=== PATIENT | male | born 1975 | race American Indian/Alaskan Native ===

== ENCOUNTER 2016-07-30 06:39 | Inpatient (IN) | payer MEDICAID ==
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
[2016-07-30 09:02] LABS: Basophils % (Auto) 1.1 % (0.0-1.8); Eosinophils % (Auto) 2.4 % (0.0-4.3); Hematocrit 43.4 % (35.5-45.6); Mean Corpuscular HGB Conc 32 % (32-34); Mean Corpuscular Hemoglobin 27 pg (28-32); Mean Corpuscular Volume 83 fl (84-94); Platelet Count 199 K/mm3 (140-440); Red Blood Count 5.22 M/mm3 (3.65-5.03); Red Cell Distribution Width 14.6 % (13.2-15.2); White Blood Count 4.7 K/mm3 (4.5-11.0)
[2016-07-30 09:14] LABS: INR 1.06 (0.87-1.13)
[2016-07-30 09:21] LABS: Anion Gap 17 mmol/L; BUN/Creatinine Ratio 11.11; Blood Urea Nitrogen 10 mg/dL (9-20); Calcium 8.9 mg/dL (8.4-10.2); Carbon Dioxide 25 mmol/L (22-30); Chloride 101.9 mmol/L (98-107); Glucose 68 mg/dL (75-100); Potassium 3.8 mmol/L (3.6-5.0); Sodium 140 mmol/L (137-145)
[2016-07-30 09:25] LABS: Alanine Aminotransferase 20 units/L (7-56); Albumin/Globulin Ratio 1.3 %; Alkaline Phosphatase 86 units/L (35-129); Bilirubin,Total 0.2 mg/dL (0.1-1.2); Total Protein 7.1 g/dL (6.3-8.2)
[2016-07-30 09:29] LABS: Bilirubin,Direct < 0.2 mg/dL (0-0.2)
--- NOTE | 2016-07-30 09:29 | XRay Report ---
Left tibia-fibula 2 views: History: Large mass anterior to mid tibia. Findings: There is soft tissue swelling noted at the anterior aspect of the proximal third of tibia. A metallic plate and screws at old healed fracture distal tibia appear stable. No lytic lesion. No periosteal reaction. Cortical thickening proximal tibia lateral aspect probably from old injury. Impression: Findings described. No acute changes.
[2016-07-30 10:06] LABS: Erythrocyte Sedimentation Rate 3 mm/Hr (0-20)
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
[2016-07-30] MEDS ORDERED: VANCOMYCIN VIAL IV ONE (11:14)
[2016-07-30] MEDS ORDERED: VANCOMYCIN PHARMACY TO DOSE IV SCH (12:00)
[2016-07-30] MEDS ORDERED: DULCOLAX PR PRN (12:34)
[2016-07-30] MEDS ORDERED: TYLENOL PO PRN (12:34)
[2016-07-30] MEDS ORDERED: ZOFRAN IV PRN (12:34)
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
[2016-07-30] MEDS ORDERED: MOTRIN PO PRN (12:39)
[2016-07-30] MEDS ORDERED: LOVENOX SUB-Q SCH (13:00)
--- NOTE | 2016-07-30 13:13 | Admit Criteria Form ---
Admission Criteria Documentation: MUSCULOSKELETAL DISEASE GRG Clinical Indications for Admission to Inpatient Care (Place 'X' for any and all applicable criteria): Hospital admission is needed for appropriate care of the patient because of ANY ONE of the following: [ ]I. Fracture, dislocation, or other musculoskeletal injury requiring inpatient care(medical) as indicated by ANY ONE of the following(4)(5)(6)(7) [ ]a) Vertebral fracture requiring observation for instability or neurologic compromise (8) [ ]b) Compartment syndrome (proven or cannot be ruled out during observation level of care) (9) [ ]c) Limb-threatening injury [ ]d) Major injury requiring inpatient stabilization such as traction initiation or external fixation before internal fixation or closure of complex or open fracture [ ]e) Major injury requiring inpatient treatment after emergency or observation level care (as appropriate) [ ]f) Severe pain requiring acute inpatient management [X ]II. Newly diagnosed or suspected bone, joint, or orthopedic device infection (e.g., osteomyelitis, septic arthritis) needing ANY ONE of the following(1)(2)(3) [X ]a) IV antibiotics that cannot be initiated in other than inpatient setting (e.g., patient too unstable or home infusion not available) [ ]b) Device removal or replacement [ ]c) Bone or soft tissue debridement [ ]d) Joint drainage (drain placement or repetitive aspirations) [ ]III. Severe rheumatologic disease (e.g., systemic lupus erythematosus, rheumatoid arthritis) with complications or comorbidities (Also use Optimal Recovery Care Criteria or General Recovery Criteria as appropriate on the basis of predominant condition), including ANY ONE of the following(10 )(11)(12)(13) [ ]a) Severe infection (e.g., ZOOGLER infection, sepsis) (14) [ ]b) Respiratory complications, including ANY ONE of the following: [ ]i) Pleural effusion with respiratory compromise [ ]ii) Pulmonary hypertension with congestive failure [ ]iii) Respiratory failure [ ]iv) Pulmonary hemorrhage (15) [ ]c) Hematologic disease, including ANY ONE of the following: [ ]i) Coagulopathy with bleeding [ ]ii) Thrombosis with hypercoagulable state [ ]iii) Thrombotic thrombocytopenic purpura [ ]d) Cerebritis with seizures, psychosis, or other severe abnormalities [ ]e) Vertebral destruction with monitoring needed for cervical myelopathy& possible respiratory compromise [ ]f) Exacerbation that requires inpatient treatment (e.g., intravenous immunosuppression) (16) [ ]g) Acute renal failure [ ]IV. Severe vasculitis with complications or comorbidities (Also use Optimal Recovery Care Criteria or General Recovery Criteria as appropriate on the basis of predominant condition), including ANY ONE of the following(11)(12)(17)(18)(19)(20) [ ]a) ZOOGLER vasculitis with seizures, psychosis, or other severe abnormalities (22) [ ]b) Renal failure (16) [ ]c) Pulmonary hemorrhage (15) [ ]d) Cerebral infarction [ ]e) Gastrointestinal ischemia [ ]f) Gangrene or threatened amputation [ ]g) Exacerbation that requires inpatient treatment (e.g., intravenous immunosuppression) (19)(21) [ ]V. Severe myopathy as indicated by ANY ONE of the following (28)(29) [ ]a) New onset of airway compromise or inability to swallow [ ]b) Respiratory deterioration with observation needed for impending respiratory failure [ ]c) Exacerbation that requires inpatient treatment (e.g., intravenous immunosuppression) [ ]. Severe gout (crystal arthropathy) as indicated by ANY ONE of the following (23)(24) [ ]a) Severe pain requiring acute inpatient management [ ]b) Exacerbation that requires inpatient treatment (e.g., intravenous treatment) [ ]VII.Rhabdomyolysis and ANY ONE of the following (25)(26)(27) [ ]a) Acute renal failure [ ]b) Need for intravenous hydration after emergency or observation level care (as appropriate) [ ]c) Inability to maintain oral hydration [ ]d) Change in mental status [ ]e) Electrolyte abnormality that remains after emergency or observation level care (as appropriate) [ ]VIII Post amputation complication, as indicated by ANY ONE of the following [ ]a) Infection [ ]b) Dehiscence [ ]c) Myodesis failure [ ]IX. Severe pain requiring acute inpatient management as indicated by ALL of the following (30)(31)(32) [ ]a) Continuous or frequent (e.g., every 2 to 4 hrs) parenteral analgesics required [A] [ ]b) Rapid improvement expected from treatment or acute intervention ( e.g., surgery, anesthesia procedure[B] [ ]X. Musculoskeletal Disease and ALL of the following: [ ]a) Symptom or finding for which emergency and observation care have failed or are not considered appropriate (Use General Criteria: Observation Care as appropriate) [ ]b) Presence of ANY ONE of the following [ ]i) A General Admission Criteria [ ]ii) A Pediatric General Admission Criteria The original [facility] content created by [facility] has been revised. The portions of the content which have been revised are identified through the use of italic text or in bold, and [facility] has neither reviewed nor approved the modified material. All other unmodified content is copyright [facility]. Please see references footnoted in the original [facility] edition 2016 Admission Criteria Met: Yes
[2016-07-30] MEDS: NORVASC PO SCH ×2 (13:20→15:02)
[2016-07-30] MEDS: NACL 0.9% 1000 ML 1,000 ML IV SCH (14:38)
[2016-07-30] MEDS: LOVENOX SUB-Q SCH (14:39)
[2016-07-30 14:45] LABS: HIV-1 Antigen p24 Non React (Non React); HIVR-1/2 Ab Non React (Non React)
[2016-07-30] MEDS ORDERED: VANCOMYCIN VIAL 2,000 MG in NACL 0.9% 500 ML 500 ML IV ONE (15:00)
[2016-07-30] MEDS ORDERED: VANCOMYCIN VIAL 2,000 MG in NACL 0.9% 500 ML 500 ML IV SCH (15:00)
[2016-07-30] MEDS: MORPHINE IV PRN ×2 (15:07→21:54)
--- NOTE | 2016-07-30 15:14 | Consultation ---
History of Present Illness - HPI Consult date: 07/30/16 Past History Past Medical History: hypertension Medications and Allergies Allergies Allergy/AdvReac Type Severity Reaction Status Date / Time No Known Allergies Allergy Verified 07/30/16 07:31 Home Medications Medication Instructions Recorded Confirmed Last Taken Type amLODIPine [Norvasc] 5 mg PO DAILY #60 tab 11/19/15 12/10/15 Unknown Rx metroNIDAZOLE [Flagyl TAB] 500 mg PO DAILY #4 tab 11/28/15 Unknown Rx Ibuprofen [Motrin 800 MG tab] 800 mg PO Q8HR PRN #30 tablet 12/01/15 12/10/15 Unknown Rx traMADol [Ultram 50 MG tab] 50 mg PO Q6HR PRN #10 tablet 12/01/15 Unknown Rx amLODIPine [Norvasc] 5 mg PO DAILY #30 tab 12/10/15 Unknown Rx Active Meds: Active Medications Acetaminophen (Tylenol) 650 mg PO Q4H PRN PRN Reason: Pain MILD(1-3)/Fever >100.5/MAO Amlodipine Besylate (Norvasc) 5 mg PO DAILY [facility] Last Admin: 07/30/16 15:02 Dose: 5 mg Bisacodyl (Dulcolax) 10 mg VA QDAY PRN PRN Reason: Constipation unrelieved by MOM Enoxaparin Sodium (Lovenox) 30 mg SUB-Q QDAY [facility] Last Admin: 07/30/16 14:39 Dose: 30 mg Sodium Chloride (Nacl 0.9% 1000 Ml) 1,000 mls @ 100 mls/hr IV DIRECT KENDRA Last Admin: 07/30/16 14:38 Dose: 100 mls/hr Vancomycin HCl 2,000 mg/ (Sodium Chloride) 500 mls @ 250 mls/hr IV ONCE ONE Stop: 07/30/16 16:59 Ibuprofen (Motrin) 800 mg PO Q8HR PRN PRN Reason: Pain Magnesium Hydroxide (Milk Of Magnesia) 30 ml PO Q4H PRN PRN Reason: Constipation Morphine Sulfate (Morphine) 2 mg IV Q4H PRN PRN Reason: Pain, Moderate (4-6) Last Admin: 07/30/16 15:07 Dose: 2 mg Ondansetron HCl (Zofran) 4 mg IV Q8H PRN PRN Reason: N/V unrelieved by Reglan Tramadol HCl (Ultram) 50 mg PO Q6HR PRN PRN Reason: Pain Vancomycin HCl (Vancomycin Pharmacy To Dose) 1 each IV PKCONSULT KENDRA PRN Reason: Protocol Physical Examination - Ankle & Foot left Ankle appearance: other (Left leg with moderate swelling, previous surgical scar , swelling involving the ankle with severe limitation of movement. His area fluctuation over the anterior aspect of the mid leg, central puncture chrissy, area measures approximately 2-3 cm in size. No calf pain or tenderness.) Assessment and Plan - Patient Problems (1) Abscess of left lower extremity Current Visit: Yes Status: Acute Plan to address problem: Under local anesthesia the leg abscess was incised with a 3 cm incision, abscess found extending into the lateral calf, 4-6 cm in size, with bloody drainage. Wound was opened packed with iodoform and sterile dressings are applied. Recommended continue with local wound care, elevation, weightbearing as tolerated and antibiotic therapy. We'll ask ID consultation. The next [id number] hours may need a second look, may need removal of internal fixation with open wound management. Prognosis guarded.
[2016-07-30] MEDS ORDERED: XYLOCAINE 2% INFILTRATI STA (15:17)
--- NOTE | 2016-07-30 16:17 | Event Note ---
Date: 07/30/16 The left leg prepped with DuraPrep, local anesthesia was administered by infiltrating the skin over the most fluctuant area with 5 cc of 1% Xylocaine plain. A longitudinal incision was made approximately 3 cm in length and the abscess cavity was entered which measured approximately 6 cm in size, extending into the lateral compartment. Wound was opened packed with iodoform Gauze.
[2016-07-31] MEDS: ULTRAM PO PRN ×2 (00:04→13:14)
[2016-07-31] MEDS: NACL 0.9% 1000 ML 1,000 ML IV SCH ×2 (03:38→12:07)
[2016-07-31] MEDS: MORPHINE IV PRN ×2 (03:38→08:02)
[2016-07-31 06:47] LABS: Basophils % (Auto) 0.7 % (0.0-1.8); Eosinophils % (Auto) 1.9 % (0.0-4.3); Hematocrit 40.4 % (35.5-45.6); Hemoglobin 13.1 gm/dl (11.8-15.2); Mean Corpuscular HGB Conc 32 % (32-34); Mean Corpuscular Hemoglobin 27 pg (28-32); Mean Corpuscular Volume 83 fl (84-94); Platelet Count 162 K/mm3 (140-440); Red Blood Count 4.89 M/mm3 (3.65-5.03); Red Cell Distribution Width 14.7 % (13.2-15.2); White Blood Count 5.9 K/mm3 (4.5-11.0)
[2016-07-31 07:27] LABS: Alanine Aminotransferase 15 units/L (7-56); Albumin 3.5 g/dL (3.9-5); Albumin/Globulin Ratio 1.4 %; Alkaline Phosphatase 68 units/L (35-129); Anion Gap 17 mmol/L; Bilirubin,Total 0.2 mg/dL (0.1-1.2); Blood Urea Nitrogen 8 mg/dL (9-20); Calcium 7.8 mg/dL (8.4-10.2); Carbon Dioxide 23 mmol/L (22-30); Chloride 103.5 mmol/L (98-107); Glucose 92 mg/dL (75-100); Potassium 4.2 mmol/L (3.6-5.0); Sodium 139 mmol/L (137-145)
[2016-07-31] MEDS: LOVENOX SUB-Q SCH (10:01)
[2016-07-31] MEDS: NORVASC PO SCH (10:02)
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
[2016-07-31] MEDS: PERCOCET 5/325 PO PRN ×2 (12:06→18:37)
--- NOTE | 2016-07-31 12:13 | Progress Note ---
Assessment and Plan - Patient Problems (1) Abscess of left lower extremity Current Visit: Yes Status: Acute Plan to address problem: Continue with wound care, antibiotics. ID consult and progress. We'll allow out of bed, weightbearing as tolerated. Subjective Date of service: 07/31/16 Objective Vital signs: Vital Signs - 12hr 07/31/16 07/31/16 08:00 10:02 Temperature 98.5 F Pulse Rate 73 Pulse Rate [ 73 Right] Respiratory 18 Rate Blood Pressure 136/88 Blood Pressure 136/88 [Right Arm] O2 Sat by Pulse 99 Oximetry - Labs CBC & BMP: 07/31/16 05:37 07/31/16 05:37 Labs: Abnormal lab results 07/31/16 07/31/16 Range/Units 05:37 05:37 MCV 83 L (84-94) fl MCH 27 L (28-32) pg [place] % (Auto) 8.0 H (0.0-7.3) % BUN 8 L (9-20) mg/dL Calcium 7.8 L (8.4-10.2) mg/dL Total Protein 6.0 L (6.3-8.2) g/dL Albumin 3.5 L (3.9-5) g/dL
[2016-08-01] MEDS: ULTRAM PO PRN ×2 (00:17→05:59)
[2016-08-01] MEDS: LOVENOX SUB-Q SCH ×2 (08:36→10:00)
[2016-08-01] MEDS: NORVASC PO SCH ×2 (08:37→10:00)
[2016-08-01] MEDS: PERCOCET 5/325 PO PRN ×2 (08:38→19:19)
[2016-08-01] MEDS: NACL 0.9% 1000 ML 1,000 ML IV SCH ×2 (08:40→18:59)
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
[2016-08-01] MEDS: OxyCONTIN PO SCH ×2 (13:23→21:42)
[2016-08-01] MEDS: ZOSYN/NS 4.5GM/100ML 4.5 GM/100 ML VIAL IV SCH (16:17)
[2016-08-02] MEDS: ZOSYN/NS 4.5GM/100ML 4.5 GM/100 ML VIAL IV SCH ×5 (06:47→22:22)
[2016-08-02] MEDS: NORVASC PO SCH (10:00)
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
[2016-08-02] MEDS: OxyCONTIN PO SCH ×2 (11:05→22:12)
[2016-08-02] MEDS: LOVENOX SUB-Q SCH (11:05)
--- NOTE | 2016-08-02 13:30 | Progress Note ---
Assessment and Plan - Patient Problems (1) Abscess of left lower extremity Current Visit: Yes Status: Acute Plan to address problem: Continue with local wound care, will plan for wound VAC. Patient may be discharged with wound VAC and antibiotics, ID followup for antibiotics. Subjective Date of service: 08/02/16 Interval history: abscess left leg, status post debridement . Wound evaluated with wound care team, appears clean. Objective Vital signs: Vital Signs - 12hr 08/02/16 08:47 Temperature 98.5 F Pulse Rate [ 78 Right] Respiratory 20 Rate Blood Pressure 144/96 [Right Arm] O2 Sat by Pulse 99 Oximetry - Labs CBC & BMP: 07/31/16 05:37 07/31/16 05:37
[2016-08-02] MEDS: PERCOCET 5/325 PO PRN (14:04)
--- NOTE | 2016-08-02 14:20 | Vascular Lab Report ---
Left Lower Extremity Venous Duplex Study: Reason for Exam: Left leg swelling. Comments on the Right: A limited duplex study was done of the proximal veins of the right lower extremity. All veins visualized are freely compressible without evidence of internal echogenicity. Flow is spontaneous and phasic throughout. No evidence of acute or chronic thrombus is seen in any of the vessels visualized. Comments on the Left: All veins visualized are freely compressible without evidence of internal echogenicity. Flow is spontaneous and phasic throughout. No evidence of acute or chronic thrombus is seen in any of the vessels visualized. Impression: No evidence of acute or chronic deep venous thrombosis in the left lower extremity.
[2016-08-02] MEDS: ULTRAM PO PRN (18:17)
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
[2016-08-03] MEDS: PERCOCET 5/325 PO PRN ×3 (00:23→17:13)
[2016-08-03] MEDS: ZOSYN/NS 4.5GM/100ML 4.5 GM/100 ML VIAL IV SCH ×4 (00:24→18:15)
--- NOTE | 2016-08-03 04:03 | Cat Scan Report ---
FINAL REPORT PROCEDURE: CT LOWER EXTREMITY LT WO CON TECHNIQUE: Computerized axial tomography of the LEFT leg was performed without contrast. HISTORY: osteomyelitis lt lower leg COMPARISON: No prior studies are available for comparison. FINDINGS: There is focal laceration or surgical defect in the pretibial soft tissues of the lower extremity. There is an intramuscular low-density mass or fluid collection extending along lateral aspect of the tibia and measuring 22 centimeters in craniocaudal dimension and 5 x 6.5 centimeters in lateral dimension. This also contains pockets of air. This could be inflammatory mass or phlegmon or early abscess. There are old fractures of the distal tibia. There is a lateral fusion plate and screws transfixing the tibia. There is diffuse sclerosis of the tibia with bony overgrowth of the cortex and callus surrounding the hardware. No acute destructive process is identified to suggest osteomyelitis. The fibula is intact. 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 There is no acute fracture. IMPRESSION: There is focal laceration or surgical defect in the pretibial soft tissues of the lower extremity. There is thickening of the soft tissues indicating cellulitis. There is no subcutaneous abscess. There is an intramuscular low-density mass or fluid collection with air extending along lateral aspect of the tibia as described suggesting phlegmon or early abscess. There is hardware transfixing an old fracture of the tibia. There is no acute fracture. No specific evidence of osteomyelitis is noted.
[2016-08-03 05:26] LABS: Hematocrit 38.5 % (35.5-45.6); Hemoglobin 12.6 gm/dl (11.8-15.2); Mean Corpuscular HGB Conc 33 % (32-34); Mean Corpuscular Hemoglobin 27 pg (28-32); Mean Corpuscular Volume 82 fl (84-94); Platelet Count 167 K/mm3 (140-440); Red Blood Count 4.68 M/mm3 (3.65-5.03); Red Cell Distribution Width 14.3 % (13.2-15.2); White Blood Count 4.6 K/mm3 (4.5-11.0)
[2016-08-03 05:39] LABS: Anion Gap 16 mmol/L; Blood Urea Nitrogen 8 mg/dL (9-20); Calcium 8.3 mg/dL (8.4-10.2); Carbon Dioxide 23 mmol/L (22-30); Chloride 101.8 mmol/L (98-107); Glucose 95 mg/dL (75-100); Potassium 4.2 mmol/L (3.6-5.0); Sodium 137 mmol/L (137-145)
[2016-08-03] MEDS: NACL 0.9% 1000 ML 1,000 ML IV SCH (06:03)
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
[2016-08-03] MEDS: NORVASC PO SCH (10:10)
[2016-08-03] MEDS: LOVENOX SUB-Q SCH ×2 (10:11→10:14)
[2016-08-03] MEDS: OxyCONTIN PO SCH ×2 (10:11→22:50)
[2016-08-03] MEDS ORDERED: VANCOMYCIN PHARMACY TO DOSE IV SCH (11:00)
[2016-08-03] MEDS: VANCOMYCIN VIAL 1,250 MG in NACL 0.9% 250ML 250 ML IV SCH ×2 (13:12→23:02)
[2016-08-03] MEDS: MILK OF MAGNESIA PO PRN (17:24)
--- NOTE | 2016-08-03 19:35 | Progress Note ---
Subjective Date of service: 08/03/16 Principal diagnosis: abscess left leg Interval history: Patient has no new complaints today. No fever or chills. He feels better. Vital signs - stable. left leg has wound vac in place. Swelling improved. ASSESSMENT 1. Left leg abscess 2. htn Recommendation Continue iv abx. d/c planning on home wound care. Patient will be switch to oral augmentin and bactrim at d/c. Objective - Constitutional Vitals: Vital Signs Temp Pulse Resp BP Pulse Ox 98.4 F 70 20 174/92 99 08/03/16 16:00 08/03/16 16:00 08/03/16 16:00 08/03/16 16:00 08/03/16 16:00 Temperature -Last 24 Hours Temperature 98.4 F Temperature 97.6 F Temperature 98.3 F - Labs CBC & Chem 7: 08/03/16 05:02 08/03/16 05:02 Labs: Abnormal lab results 08/03/16 08/03/16 Range/Units 05:02 05:02 MCV 82 L (84-94) fl MCH 27 L (28-32) pg BUN 8 L (9-20) mg/dL Calcium 8.3 L (8.4-10.2) mg/dL
[2016-08-04] MEDS: NACL 0.9% 1000 ML 1,000 ML IV SCH (00:17)
[2016-08-04] MEDS: PERCOCET 5/325 PO PRN ×2 (01:58→13:07)
[2016-08-04] MEDS: ZOSYN/NS 4.5GM/100ML 4.5 GM/100 ML VIAL IV SCH ×3 (04:04→12:44)
[2016-08-04] MEDS: VANCOMYCIN VIAL 1,250 MG in NACL 0.9% 250ML 250 ML IV SCH ×2 (06:05→13:35)
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
[2016-08-04] MEDS: OxyCONTIN PO SCH (09:56)
[2016-08-04] MEDS: NORVASC PO SCH (09:57)
[2016-08-04] MEDS: LOVENOX SUB-Q SCH (09:59)
--- NOTE | 2016-08-04 10:50 | Progress Note ---
Subjective Date of service: 08/04/16 Principal diagnosis: abscess left leg Interval history: Patient has no new complaints today. No fever or chills. He feels better. Vital signs - stable. left leg has wound vac in place. Swelling improved. ASSESSMENT 1. Left leg abscess 2. htn Recommendation Discussed with PMD. Patient to be discharged on oral augmentin and bactrim for 2weeks. Follow up with out patient pmd. Objective - Constitutional Vitals: Vital Signs Temp Pulse Resp BP Pulse Ox 98.0 F 74 18 141/85 98 08/04/16 08:15 08/04/16 08:15 08/04/16 09:56 08/04/16 09:57 08/04/16 08:15 Temperature -Last 24 Hours Temperature 98.0 F Temperature 99 F Temperature 98.4 F - Labs CBC & Chem 7: 08/03/16 05:02 08/03/16 05:02
[2016-08-04] MEDS: MILK OF MAGNESIA PO PRN (13:07)
[2016-08-04] MEDS ORDERED: FLUARIX QUAD 2016-2017(36 MOS+) IM ONE (14:00)
[2016-08-04 15:36] VITALS: BP 135/91
== END 2016-08-04 17:30 | disposition home health service (06) | DRG 560 ==
LOC: ED 06:39 → 3A 12:34
PROVIDERS: ADMIT Internal Medicine; ATTEND Internal Medicine
PROC: 0J9P30Z Drainage of Left Lower Leg Subcutaneous Tissue and Fascia with Drainage Device, Percutaneous Approach (ICD-10-PCS; principal; 2016-07-30)
DX: T84.623A Infection and inflammatory reaction due to internal fixation device of left tibia, initial encounter (principal); L02.416 Cutaneous abscess of left lower limb; M86.8X6 Other osteomyelitis, lower leg; L03.116 Cellulitis of left lower limb; E66.01 Morbid (severe) obesity due to excess calories; I10 Essential (primary) hypertension; F17.210 Nicotine dependence, cigarettes, uncomplicated; Z79.899 Other long term (current) drug therapy; Z86.718 Personal history of other venous thrombosis and embolism; Z68.29 Body mass index [BMI] 29.0-29.9, adult; Z79.01 Long term (current) use of anticoagulants
CPT/HCPCS: 36415; 80048; 80053; 80074; 82140; 85025; 85027; 85610; 85652; 86140; 87040; 87075; 87116; 87806; 90686; J1650; J2270; J2543; J3370; J7030; J7040; J7050

== ENCOUNTER 2016-08-07 04:52 | Emergency (ER) | payer MEDICAID ==
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
[2016-08-07 10:28] VITALS: BP 150/92
== END 2016-08-07 10:32 | disposition home or self-care (01) ==
LOC: ED 04:52
DX: S81.802D Unspecified open wound, left lower leg, subsequent encounter (principal); I10 Essential (primary) hypertension; Z86.718 Personal history of other venous thrombosis and embolism; F12.10 Cannabis abuse, uncomplicated
CPT/HCPCS: 99282

== ENCOUNTER 2016-08-19 09:38 | Outpatient (CLI) | payer MEDICAID ==
[2016-08-19] MEDS ORDERED: XYLOCAINE TOPICAL 4% TP ONE ×2 (10:43→15:54)
== END 2016-08-19 09:39 | disposition home or self-care (01) ==
LOC: WOUND 09:38
PROVIDERS: ATTEND Nurse Practitioner
DX: T84.7XXA Infection and inflammatory reaction due to other internal orthopedic prosthetic devices, implants and grafts, initial encounter (principal); S81.802S Unspecified open wound, left lower leg, sequela; I10 Essential (primary) hypertension; Z86.718 Personal history of other venous thrombosis and embolism; Z87.891 Personal history of nicotine dependence; Y83.8 Other surgical procedures as the cause of abnormal reaction of the patient, or of later complication, without mention of misadventure at the time of the procedure
CPT/HCPCS: 11042; 97605; G0463; 99212

== ENCOUNTER 2016-09-02 10:05 | Outpatient (CLI) | payer MEDICAID ==
[2016-09-02] MEDS ORDERED: XYLOCAINE TOPICAL 4% TP ONE ×2 (11:07→16:02)
[2016-09-02] MEDS ORDERED: NACL 0.9% 500 ML IR ONE (12:30)
[2016-09-02] MEDS ORDERED: NACL 0.9% IR PRN (16:02)
== END 2016-09-02 10:06 | disposition home or self-care (01) ==
LOC: WOUND 10:05
PROVIDERS: ATTEND Nurse Practitioner
DX: T81.89XD Other complications of procedures, not elsewhere classified, subsequent encounter (principal); T84.7XXA Infection and inflammatory reaction due to other internal orthopedic prosthetic devices, implants and grafts, initial encounter; S81.802S Unspecified open wound, left lower leg, sequela; M79.672 Pain in left foot; I10 Essential (primary) hypertension; Z86.718 Personal history of other venous thrombosis and embolism; Z87.891 Personal history of nicotine dependence; Y83.8 Other surgical procedures as the cause of abnormal reaction of the patient, or of later complication, without mention of misadventure at the time of the procedure; B35.1 Tinea unguium

== ENCOUNTER 2016-09-06 13:35 | Outpatient (CLI) | payer MEDICAID | END 2016-09-06 13:36 | disposition home or self-care (01) | LOC: WOUND 13:35 | PROVIDERS: ATTEND Internal Medicine | DX: T84.7XXA Infection and inflammatory reaction due to other internal orthopedic prosthetic devices, implants and grafts, initial encounter (principal); S81.802D Unspecified open wound, left lower leg, subsequent encounter; I10 Essential (primary) hypertension; Z86.718 Personal history of other venous thrombosis and embolism; Z87.891 Personal history of nicotine dependence; Y83.8 Other surgical procedures as the cause of abnormal reaction of the patient, or of later complication, without mention of misadventure at the time of the procedure | CPT/HCPCS: 97605 ==

== ENCOUNTER 2016-10-07 09:50 | Outpatient (CLI) | payer MEDICAID ==
[~2016-10-07 09:50] MED LIST: XYLOCAINE TOPICAL 2% TP ONE
[2016-10-07] MEDS ORDERED: XYLOCAINE TOPICAL 4% TP ONE ×2 (09:51→12:48)
[2016-10-08] MEDS ORDERED: SODIUM CHLORIDE FLUSH SYRINGE 10 ML IV ONE (07:53)
== END 2016-10-07 09:51 | disposition home or self-care (01) ==
LOC: WOUND 09:50
PROVIDERS: ATTEND Nurse Practitioner
DX: T84.7XXD Infection and inflammatory reaction due to other internal orthopedic prosthetic devices, implants and grafts, subsequent encounter (principal); S91.002A Unspecified open wound, left ankle, initial encounter; X58.XXXA Exposure to other specified factors, initial encounter; Z86.718 Personal history of other venous thrombosis and embolism; I10 Essential (primary) hypertension; Z87.891 Personal history of nicotine dependence; Z72.89 Other problems related to lifestyle; F19.10 Other psychoactive substance abuse, uncomplicated; Y93.9 Activity, unspecified; Y92.9 Unspecified place or not applicable; Y99.9 Unspecified external cause status; Y83.8 Other surgical procedures as the cause of abnormal reaction of the patient, or of later complication, without mention of misadventure at the time of the procedure
CPT/HCPCS: 10060

== ENCOUNTER 2016-10-13 09:48 | Outpatient (CLI) | payer MEDICAID ==
[2016-10-13] MEDS ORDERED: XYLOCAINE TOPICAL 4% TP ONE ×2 (09:53→10:29)
== END 2016-10-13 09:49 | disposition home or self-care (01) ==
LOC: WOUND 09:48
PROVIDERS: ATTEND Surgery
DX: T84.7XXD Infection and inflammatory reaction due to other internal orthopedic prosthetic devices, implants and grafts, subsequent encounter (principal); L97.821 Non-pressure chronic ulcer of other part of left lower leg limited to breakdown of skin; L97.321 Non-pressure chronic ulcer of left ankle limited to breakdown of skin; I10 Essential (primary) hypertension; F15.90 Other stimulant use, unspecified, uncomplicated; Z86.718 Personal history of other venous thrombosis and embolism; Z87.891 Personal history of nicotine dependence; Z72.89 Other problems related to lifestyle; Y83.8 Other surgical procedures as the cause of abnormal reaction of the patient, or of later complication, without mention of misadventure at the time of the procedure

== ENCOUNTER 2016-10-18 09:58 | Outpatient (CLI) | payer MEDICAID ==
[2016-10-18 10:26] LABS: Hematocrit 36.2 % (35.5-45.6); Mean Corpuscular HGB Conc 33 % (32-34); Mean Corpuscular Hemoglobin 27 pg (28-32); Mean Corpuscular Volume 81 fl (84-94); Platelet Count 274 K/mm3 (140-440); Red Blood Count 4.47 M/mm3 (3.65-5.03); Red Cell Distribution Width 17.8 % (13.2-15.2); White Blood Count 7.3 K/mm3 (4.5-11.0)
[2016-10-18 10:41] LABS: Alanine Aminotransferase 7 units/L (7-56); Albumin 3.8 g/dL (3.9-5); Albumin/Globulin Ratio 1.1 %; Anion Gap 15 mmol/L; Blood Urea Nitrogen 12 mg/dL (9-20); Calcium 8.9 mg/dL (8.4-10.2); Carbon Dioxide 26 mmol/L (22-30); Chloride 101.9 mmol/L (98-107); Glucose 105 mg/dL (75-100); Sodium 139 mmol/L (137-145); Total Protein 7.4 g/dL (6.3-8.2)
[2016-10-18 10:47] LABS: Erythrocyte Sedimentation Rate 36 mm/Hr (0-20)
[2016-10-18 12:40] LABS: Alkaline Phosphatase 78 units/L (35-129)
--- NOTE | 2016-10-18 15:46 | Nuclear Medicine Report ---
TRIPLE PHASE BONE SCAN HISTORY: Left leg abscess, chronic osteomyelitis. FINDINGS: There are no recent comparisons. Comparison is made to a left tibia and fibula x-ray performed 09/13/16. The blood flow images, blood pool images and delayed images demonstrate marked increased accumulation of the radiotracer in the distal left tibia and hindfoot highly suggestive of osteomyelitis. IMPRESSION: Positive triple phase bone scan for osteomyelitis in the distal left leg.
== END 2016-10-18 09:59 | disposition home or self-care (01) ==
LOC: NM 09:58
PROVIDERS: ATTEND Surgery
DX: M86.8X8 Other osteomyelitis, other site (principal); L02.416 Cutaneous abscess of left lower limb
CPT/HCPCS: 36415; 78315; 80053; 85027; 85652; 86140; A9503

== ENCOUNTER 2016-10-20 10:00 | Outpatient (CLI) | payer MEDICAID ==
[2016-10-20] MEDS ORDERED: XYLOCAINE TOPICAL 4% TP ONE ×2 (10:26→11:30)
== END 2016-10-20 10:01 | disposition home or self-care (01) ==
LOC: WOUND 10:00
PROVIDERS: ATTEND Internal Medicine
DX: L97.822 Non-pressure chronic ulcer of other part of left lower leg with fat layer exposed (principal); I10 Essential (primary) hypertension; M86.60 Other chronic osteomyelitis, unspecified site; Q89.8 Other specified congenital malformations; Z86.718 Personal history of other venous thrombosis and embolism; Z87.891 Personal history of nicotine dependence

== ENCOUNTER 2016-10-20 12:06 | Outpatient (CLI) | payer MEDICAID ==
--- NOTE | 2016-10-20 12:48 | XRay Report ---
ROUTINE CHEST, TWO VIEWS: History: Hyperbaric clearance. PA and lateral views demonstrate the heart and mediastinal contour to be of normal size and shape. The lungs are clear and fully expanded and the soft tissues and bony structures are normal. IMPRESSION: Normal study.
== END 2016-10-20 12:07 | disposition home or self-care (01) ==
LOC: XRAY 12:06
PROVIDERS: ATTEND Internal Medicine
DX: Z01.818 Encounter for other preprocedural examination (principal)
CPT/HCPCS: 71020

== ENCOUNTER 2016-10-27 11:04 | Outpatient (CLI) | payer MEDICAID ==
[2016-10-27] MEDS ORDERED: XYLOCAINE TOPICAL 2% ONE (11:27)
[2016-10-27] MEDS ORDERED: XYLOCAINE TOPICAL 2% TP ONE (12:00)
== END 2016-10-27 11:05 | disposition home or self-care (01) ==
LOC: WOUND 11:04
PROVIDERS: ATTEND Surgery
DX: L97.822 Non-pressure chronic ulcer of other part of left lower leg with fat layer exposed (principal); M86.462 Chronic osteomyelitis with draining sinus, left tibia and fibula; I10 Essential (primary) hypertension; Z86.718 Personal history of other venous thrombosis and embolism; Z87.891 Personal history of nicotine dependence
CPT/HCPCS: 99215; G0463

== ENCOUNTER 2016-11-03 11:09 | Outpatient (CLI) | payer MEDICAID ==
[2016-11-03] MEDS ORDERED: XYLOCAINE TOPICAL 4% TP ONE ×2 (11:58→14:19)
== END 2016-11-03 11:10 | disposition home or self-care (01) ==
LOC: WOUND 11:09
PROVIDERS: ATTEND Surgery
DX: L97.322 Non-pressure chronic ulcer of left ankle with fat layer exposed (principal); M86.462 Chronic osteomyelitis with draining sinus, left tibia and fibula; I10 Essential (primary) hypertension; Z86.718 Personal history of other venous thrombosis and embolism; Z87.891 Personal history of nicotine dependence

== ENCOUNTER 2016-11-04 12:04 | Outpatient (CLI) | payer MEDICAID ==
[2016-11-04] MEDS ORDERED: NACL ONE (12:52)
[2016-11-04 13:20] LABS: Hematocrit 37.9 % (35.5-45.6); Hemoglobin 12.1 gm/dl (11.8-15.2); Mean Corpuscular HGB Conc 32 % (32-34); Mean Corpuscular Hemoglobin 26 pg (28-32); Mean Corpuscular Volume 83 fl (84-94); Platelet Count 301 K/mm3 (140-440); Red Cell Distribution Width 17.2 % (13.2-15.2); White Blood Count 6.4 K/mm3 (4.5-11.0)
[2016-11-04 13:31] LABS: Anion Gap 19 mmol/L; BUN/Creatinine Ratio 8.75; Blood Urea Nitrogen 7 mg/dL (9-20); Carbon Dioxide 24 mmol/L (22-30); Chloride 100.6 mmol/L (98-107); Glucose 97 mg/dL (75-100); Potassium 4.1 mmol/L (3.6-5.0); Sodium 139 mmol/L (137-145)
--- NOTE | 2016-11-04 17:56 | Cat Scan Report ---
FINAL REPORT EXAM: CT LOWER EXTREMITY LT W CON HISTORY: SWELLING and edema OF LT LEG,CHRONIC OSTEOMYELITIS TECHNIQUE: enhanced CT of the left tibia and fibula at 1.25 and 2.5 mm axial intervals. Coronal and sagittal reconstruction was also performed. Contrast: 100 cc Omnipaque 300 given IV. PRIORS: CT lower extremity 09/13/2016 FINDINGS: Bony structures: Extensive internal fixation with orthopedic plates and screws are present throughout the tibia and proximal tarsal bones. The overlying appearance of these areas is similar to previous exam with no areas of new erosive lucency or periosteal reaction identified. Several marginal areas of lucency adjacent to the hardware seen previously is stable. Joint spaces: Postsurgical degenerative changes in the ankle joint are to again noted. Joint spaces in the knee are maintained. Soft tissues: There is a well-circumscribed low-density ovoid focus with peripheral wall enhancement suspicious for abscess. No internal air is seen. This is located along the anterior lateral margin of the tibia at the junction between the proximal 3rd and distal 2/3. This area measures 7.0 x 5.1 x 4.4 cm and is slightly smaller compared to the previous exam (previously 5.7 x 4.3 x 10.1 cm). This appears to communicate with a smaller collection anteriorly measuring 1.3 x 1.1 x 1.6 cm. This is also smaller (previously 2.0 x 1.7 x 3.2 cm). The appearance of the adjacent tibia is stable with no new evidence for cortical erosion or lucency to suggest osteomyelitis. Mild overlying subcutaneous edema remains throughout the tibia and fibula related to healing. IMPRESSION: Evidence for focal abscess similar to the previous study although slightly smaller. The adjacent communicating collection anteriorly is also smaller. Otherwise, no underlying bony change compared to previous. No current evidence for osteomyelitis. Generalized subcutaneous edema over the tibia and fibula is again seen.
== END 2016-11-04 12:05 | disposition home or self-care (01) ==
LOC: CT 12:04
PROVIDERS: ATTEND Surgery
DX: M19.072 Primary osteoarthritis, left ankle and foot (principal)
CPT/HCPCS: 36415; 73701; 80048; 85027; Q9967

== ENCOUNTER 2016-11-11 10:20 | Outpatient (CLI) | payer MEDICAID ==
[2016-11-11] MEDS ORDERED: XYLOCAINE TOPICAL 4% TP ONE (11:22)
== END 2016-11-11 10:21 | disposition home or self-care (01) ==
LOC: WOUND 10:20
PROVIDERS: ATTEND Nurse Practitioner
DX: S91.002D Unspecified open wound, left ankle, subsequent encounter (principal); I10 Essential (primary) hypertension; M86.68 Other chronic osteomyelitis, other site; Q89.9 Congenital malformation, unspecified; Z86.718 Personal history of other venous thrombosis and embolism; Z87.891 Personal history of nicotine dependence; X58.XXXD Exposure to other specified factors, subsequent encounter
CPT/HCPCS: 99212; G0463

== ENCOUNTER 2016-11-18 09:35 | Outpatient (CLI) | payer MEDICAID | END 2016-11-18 09:36 | disposition home or self-care (01) | LOC: WOUND 09:35 | PROVIDERS: ATTEND Nurse Practitioner | DX: S91.002D Unspecified open wound, left ankle, subsequent encounter (principal); Q89.9 Congenital malformation, unspecified; M86.662 Other chronic osteomyelitis, left tibia and fibula; I10 Essential (primary) hypertension; Z87.891 Personal history of nicotine dependence; Z86.718 Personal history of other venous thrombosis and embolism; X58.XXXD Exposure to other specified factors, subsequent encounter ==

== ENCOUNTER 2016-12-02 11:13 | Outpatient (CLI) | payer MEDICAID | END 2016-12-02 11:14 | disposition home or self-care (01) | LOC: WOUND 11:13 | PROVIDERS: ATTEND Nurse Practitioner | DX: T84.7XXD Infection and inflammatory reaction due to other internal orthopedic prosthetic devices, implants and grafts, subsequent encounter (principal); E11.69 Type 2 diabetes mellitus with other specified complication; M86.68 Other chronic osteomyelitis, other site; I10 Essential (primary) hypertension; Z86.718 Personal history of other venous thrombosis and embolism; Z87.891 Personal history of nicotine dependence; Y83.8 Other surgical procedures as the cause of abnormal reaction of the patient, or of later complication, without mention of misadventure at the time of the procedure | CPT/HCPCS: 99212; G0463 ==